=== PATIENT | female | born 1960 | race Caucasian/White ===

== ENCOUNTER 2018-11-29 14:11 | Observation (INO) ==
[2018-11-29] MEDS ORDERED: Naloxone 0.4 MG/ML INJ IVP PRN (18:15)
[2018-11-29] MEDS ORDERED: Nitroglycerin 0.4 MG TAB.SUBL SL PRN (18:20)
--- NOTE | 2018-11-29 18:23 | Internal Med History&Physical ---
Date of Encounter: 11/29/18 Time of Encounter: 18:21 Internal Medicine - H&P: HPI Chief complaint: Chest pain Admitted From: Home Plans for Post Hospital Care: Home History of present illness: Ms. Adamson is a 58 year old female with past medical history significant for chronic lower back pain, distress with significant disease, and depression, presented to the [facility] as a transfer from [facility] due to chest pain. Patient reports her chest pain is going on for past 1 month. Patient reports has just been is getting increasingly worse over past 1 week. Recent chest pain is sharp and tight, 8 out of 10 in severity, and radiates below her bilateral breast. She denied any aggravating and Enterobacter. She denied any difficulty breathing, cough, fever, and chills. Patient denied any nausea, vomiting, abdominal pain, and diabetes. Patient denied any tingling, numbness, weakness, and diaphoresis. Patient had EKG done at outside facility which showed sinus rhythm and ST segment depression which was minimal in lead 3 and aVF. Patient's repeat EKG after that was within normal limit and sinus rhythm. Recent troponin one time was done and was negative. Patient was transferred to [facility] for further workup and cardiology consult. Patient denies any history of hypertension and diabetes. He does admit to smoking. 40 pack smoking history. Past Med Surg Social Fam HX - Past Medical History Medical history: COPD Additional medical history: CHRONIC PAIN Psychiatric history: no psych history - Past Surgical History Surgical History: orthopedic, other, other Additional surgical history: back surgery. rt wrist. d&C. t&a, - Social History Smoking Status: Current every day smoker Packs per day: 1 Smokeless Tobacco Status: No Alcohol use: none Drug use: none - Family History Mother Hx Family Respiratory Disorders: Yes Hx Family Musculoskeletal Disorders: Yes Father Hx Family Respiratory Disorders: Yes (Lung Cancer) Internal Medicine - H&P: Meds No Known Home Drugs 11/29/18 [History] Allergy/AdvReac Type Severity Reaction Status Date / Time No Known Allergies Allergy Verified 11/17/15 10:39 All Systems PM: A 10-system review of systems was performed and is negative for pertinent findings except as documented above in the HPI. - Constitutional Vitals: Temp Pulse Resp BP Pulse Ox 98.2 F 68 18 123/72 97 11/29/18 17:47 11/29/18 17:47 11/29/18 17:47 11/29/18 17:47 11/29/18 17:47 General appearance: Present: cooperative, A&O X 3 Exam: General: A & O 3, In no acute distress HENNT: PERRLA. Head atraumatic and makes supple CVS S1 and S2 regular, no murmur RS: Clear to air entry bilaterally, no wheeze, no crackles Abdomen: Soft and nontender. Bowel sounds normal 4 Extremities: No cyanosis, clubbing, and edema Neurology: Cranial II-XII normal. Motor strength 5/5 bilaterally. Sensation intact - Assessment and Plan (1) Chest pain Current Visit: No Status: Acute Assessment and plan: Patient transferred to [facility] for chest pain. Patient has been reporting just past one month which has worsened over past 1 week. He has a history of gastroesophageal reflux disease. EKG ordered outside facility showed minimal ST depression in the II and III and in aVF. Patient's repeat EKG was within normal limit with sinus rhythm. Troponin 1 was negative. Patient could be having just been due to unstable angina. - Trend troponin - Morphine for pain control as needed. - Supplement O2 to keep O2 saturation above 92% - Lipid panel - EKG in - Echocardiogram ordered - Will consider cardiology consult Qualifiers: Chest pain type: unspecified Qualified Code(s): R07.9 - Chest pain, unspecified (2) GERD (gastroesophageal reflux disease) Current Visit: Yes Status: Chronic Assessment and plan: Continue Protonix. Qualifiers: Esophagitis presence: esophagitis presence not specified Qualified Code(s): K21.9 - Gastro-esophageal reflux disease without esophagitis (3) Depression Current Visit: Yes Status: Acute Assessment and plan: Continue Prozac Qualifiers: Depression Type: unspecified Qualified Code(s): F32.9 - Major depressive disorder, single episode, unspecified (4) Chronic lower back pain Current Visit: Yes Status: Acute Assessment and plan: Continue continue morphine as needed Qualifiers: Back pain laterality: unspecified Sciatica presence: unspecified whether sciatica present Qualified Code(s): M54.5 - Low back pain; G89.29 - Other chronic pain (5) DVT prophylaxis Current Visit: Yes Status: Acute Assessment and plan: Heparin subcutaneous. - Time Spent With Patient Total time spent is greater than 50% in coordination of care (as documented) at patient's floor/unit and/or counseling patient: Greater than 35 minutes
[2018-11-29] MEDS ORDERED: *HR* Heparin 5,000 UNIT/ML VIAL IVP ONE (18:45)
[2018-11-29] MEDS ORDERED: *HR* Heparin 5,000 UNIT/ML VIAL IVP PRN (18:45)
[2018-11-29] MEDS: 0.9 % Sodium Chloride 1,000 ML IVC SCH (18:55)
[2018-11-29] MEDS: Heparin 25,000 UNIT/250 ML D5W 25,000 UNIT/250 ML IV.SOLN IVC SCH (19:45)
[2018-11-29] MEDS: Morphine Sulfate 2 MG/ML SYRINGE IVP PRN (21:01)
[2018-11-29] MEDS: Nicotine 21 MG PATCH.TD24 TD SCH (21:41)
[2018-11-29] MEDS ORDERED: *HR* Heparin 5,000 UNIT/ML VIAL SQ SCH (22:00)
[2018-11-30 02:06] LABS: Basophils # 0.1 K/mcL (0.0-0.2); Basophils % 0.7 %; Eosinophils % 0.3 %; Hematocrit 37.4 % (35.3-44.9); Hemoglobin 12.4 g/dL (11.5-15.4); Immature Granulocytes % 0.1 % (0-4); Lymphocytes # 2.9 K/mcL (0.6-4.6); Lymphocytes % 38.5 %; Mean Corpuscular HGB Conc 33.2 g/dL (31.6-35.5); Mean Corpuscular Hemoglobin 32.3 pg (28.0-33.3); Mean Corpuscular Volume 97.4 fL (83.0-100.0); Mean Platelet Volume 9.1 fL (9.4-12.4); Monocytes # 0.5 K/mcL (0.0-1.3); Monocytes % 6.7 %; Neutrophils # 4.1 K/mcL (1.6-8.9); Platelet Count 309 K/mcL (140-400); Red Blood Count 3.84 M/mcL (3.82-4.97); Red Cell Distribution Width 14.1 % (11.5-14.5); Segmented Neutrophils % 53.7 %; White Blood Count 7.6 K/mcL (4.3-11.1)
[2018-11-30 02:25] LABS: BUN/Creatinine Ratio 23 (6-26); Blood Urea Nitrogen 16 mg/dL (6-20); Calcium 9.4 mg/dL (8.6-10.3); Carbon Dioxide 24 mEq/L (23-29); Chloride 109 mEq/L (98-107); Cholesterol 185 mg/dL (< 200); Glucose 89 mg/dL (70-105); HDL Cholesterol 45 mg/dL (40-59); Osmolality,Calculated 289 (280-300); Sodium 139 mEq/L (136-145); Triglycerides 151 mg/dL (< 150); eGFR For African Americans > 60 (> 60); eGFR For Non-African Americans > 60 (> 60)
[2018-11-30 02:26] LABS: Chol/HDL Ratio 4.1 (0-4.9); LDL Cholesterol,Calculated 110 mg/dL (0-99)
[2018-11-30] MEDS: *HR* Heparin 5,000 UNIT/ML VIAL IVP PRN ×2 (02:31→15:01)
[2018-11-30] MEDS: Nicotine 21 MG PATCH.TD24 TD SCH (09:35)
[2018-11-30] MEDS: FLUoxetine 20 MG CAPSULE PO SCH (09:38)
[2018-11-30] MEDS: Morphine Sulfate 2 MG/ML SYRINGE IVP PRN (09:47)
[2018-11-30] MEDS ORDERED: Acetaminophen 325 MG TABLET PO PRN (10:36)
[2018-11-30] MEDS ORDERED: GI Cocktail 40 ML EACH PO ONE (11:32)
--- NOTE | 2018-11-30 12:19 | Internal Med Progress Note ---
Hospitalist Progress Note - Encounter Date of Encounter: 11/30/18 Time of Encounter: 12:16 - Subjective Interval History: She will seen and examined at bedside today. Patient still complains of on and off chest pain which is substernal and burning. Patient's assessment appears to be atypical. Patient's troponins 3 has been negative. Patient to go for echo today. Cardiology consult. We will consider stress test. - Exam Vitals: Temp Pulse Resp BP Pulse Ox 98.3 F 85 18 121/83 97 11/30/18 11:32 11/30/18 11:32 11/30/18 11:32 11/30/18 11:32 11/30/18 11:32 Exam: General: A & O 3, In no acute distress HENNT: PERRLA. Head atraumatic and makes supple CVS S1 and S2 regular, no murmur RS: Clear to air entry bilaterally, no wheeze, no crackles Abdomen: Soft and nontender. Bowel sounds normal 4 Extremities: No cyanosis, clubbing, and edema Neurology: Cranial II-XII normal. Motor strength 5/5 bilaterally. Sensation intact - Assessment and Plan (1) Chest pain Current Visit: Yes Status: Acute Assessment and Plan: Leslye continues to have atypical chest pain. Troponin 3 has been negative. Plan is to get echo today. Cardiology on consult. We will consider stress test. We will switch pain management to oral pain medication. We will plan on getting stress test tomorrow anticipate discharge tomorrow after stress test. (2) GERD (gastroesophageal reflux disease) Current Visit: Yes Status: Chronic Assessment and Plan: Continue Protonix. GI cocktail 1. Patient reports that she has a history of GERD and she has not been taking her medication fpr 7-8 months due to insurance issue. Recent substernal burning pain could be due to exacerbation of baseline gastroesophageal reflux disease. (3) Depression Current Visit: Yes Status: Acute Assessment and Plan: Continue Prozac (4) Chronic lower back pain Current Visit: Yes Status: Acute Assessment and Plan: Continue continue morphine as needed (5) DVT prophylaxis Current Visit: Yes Status: Acute Assessment and Plan: Heparin gtt - Time Spent with Patient Total time spent is greater than 50% in coordination of care (as documented) at patient's floor/unit and/or counseling patient: 25 - 35 minutes Plan of Care Discussed with: patient Internal Medicine: Result - Labs CBC & Chem 7: 11/30/18 01:47 11/30/18 01:47 Labs: Short CBC 11/30/18 Range/Units 01:47 WBC 7.6 (4.3-11.1) K/mcL Hgb 12.4 (11.5-15.4) g/dL Hct 37.4 (35.3-44.9) % Plt Count 309 (140-400) K/mcL Neutrophils # 4.1 (1.6-8.9) K/mcL BMP 11/30/18 01:47 Sodium 139 Potassium 4.0 Chloride 109 H Carbon Dioxide 24 BUN 16 Creatinine 0.71 Glucose 89 Calcium 9.4 Cardiac Enzymes 11/29/18 11/30/18 11/30/18 Range/Units 18:27 01:47 06:29 Troponin I < 0.03 < 0.03 < 0.03 (< 0.04) ng/mL Consult Discharge Plan - Plan Referrals: Sergio Finn MD [Primary Care Provider] - (1) Chest pain Qualifiers: Chest pain type: unspecified Qualified Code(s): R07.9 - Chest pain, unspecified (2) GERD (gastroesophageal reflux disease) Qualifiers: Esophagitis presence: esophagitis presence not specified Qualified Code(s): K21.9 - Gastro-esophageal reflux disease without esophagitis (3) Depression Qualifiers: Depression Type: unspecified Qualified Code(s): F32.9 - Major depressive disorder, single episode, unspecified (4) Chronic lower back pain Qualifiers: Back pain laterality: unspecified Sciatica presence: unspecified whether sciatica present Qualified Code(s): M54.5 - Low back pain; G89.29 - Other chronic pain
[2018-11-30] MEDS: 0.9 % Sodium Chloride 1,000 ML IVC SCH (17:28)
[2018-11-30] MEDS: *HR* HYDROcodone/Acet 5/325 mg TABLET PO PRN (20:37)
[2018-11-30] MEDS: Heparin 25,000 UNIT/250 ML D5W 25,000 UNIT/250 ML IV.SOLN IVC SCH (22:25)
[2018-12-01] MEDS ORDERED: Regadenoson 0.4 MG/5 ML SYRINGE IVP ONE (06:10)
[2018-12-01] MEDS: FLUoxetine 20 MG CAPSULE PO SCH (08:41)
[2018-12-01] MEDS: *HR* HYDROcodone/Acet 5/325 mg TABLET PO PRN ×2 (08:41→13:29)
[2018-12-01] MEDS: Nicotine 21 MG PATCH.TD24 TD SCH (08:42)
--- NOTE | 2018-12-01 10:31 | Cardiology Consult Note ---
Date of Encounter: 12/01/18 Time of Encounter: 10:30 Assessment and Plan (1) Chest pain Current Visit: Yes Status: Acute Per Cardiology: Troponins negative 3. Currently chest pain-free. Echo with preserved EF. Stress test perfusion imaging negative for ischemia or infarct, however ECG with ischemic changes. I discussed with patient about potential further ischemic evaluation in terms of left heart catheterization, however patient prefers to go home and follow-up in outpatient setting and monitor symptoms. Would discontinue IV heparin drip. We will add baby aspirin. We will discuss review with Dr. Suh. Cardiology signing off, reconsult as needed, follow-up arranged. Qualifiers: Chest pain type: unspecified Qualified Code(s): R07.9 - Chest pain, unspecified (2) Nicotine abuse Current Visit: Yes Status: Chronic Per Cardiology: History smoked one pack per day for 40 years. I did spend 3-5 minutes today providing smoking cessation education and counseling. Patient highly encouraged to quit smoking. Discussion w patient/family: The assessment and plan as outlined above was discussed with the patient and/or family members who expressed understanding and agreement. All questions were answered. Thank you for involving us in the care of your patient. Please call with any questions. History of Present Illness Consult date: 12/01/18 Consult reason: Abnormal ECG on stress Chief complaint: CP History of present illness: Ms. Adamson is a 58 year old female with relevant past medical history of COPD and nicotine abuse. Has smoked one pack per day for 40 years. Cardiology consult for abnormal ECG during stress test. Patient reports exertional bilateral lower rib cage pressure with activities. She indicates overall increased dyspnea on exertion from baseline over the past one month. Does indicate increasing fatigue over the past one month as well. She reports currently attempting to decrease smoking. She reports possible family history mother and father with MIs, however no stenting or bypass surgery. She denies any previous left heart catheterization. Currently chest pain-free. She denies any recent infectious process. Denies any dizziness, syncope, falls, palpitations, any edema or swelling. Denies any active bleeding or blood loss. Past Med Surg Social Fam HX - Past Medical History Attestation: Yes The following information was validated with the patient. Source: patient, old records reviewed Medical history: COPD Additional medical history: CHRONIC PAIN Psychiatric history: no psych history - Past Surgical History Surgical History: orthopedic, other, other Additional surgical history: back surgery. rt wrist. d&C. t&a, - Social History Smoking Status: Current every day smoker Packs per day: 1 Smokeless Tobacco Status: No Alcohol use: none Drug use: none - Family History Mother Hx Family Respiratory Disorders: Yes Hx Family Musculoskeletal Disorders: Yes Father Hx Family Respiratory Disorders: Yes (Lung Cancer) Medications and Allergies Albuterol Sulfate [Ventolin Hfa] 18 gm IH 4-6XD PRN 30 Days #1 hfa.aer.ad 11/30/18 [Rx] Aspirin 81 mg PO DAILY 30 Days #30 tab.chew 11/30/18 [Rx] FLUoxetine HCl [PROzac] 40 mg PO DAILY 30 Days #30 capsule 11/30/18 [Rx] Gabapentin 300 mg PO TID 30 Days #90 tablet 11/30/18 [Rx] Pantoprazole Sodium [Protonix] 40 mg PO DAILY 30 Days #30 tablet.dr 11/30/18 [Rx] Ranitidine Oral Soln [Zantac] 150 mg PO BID 30 Days #60 mls 11/30/18 [Rx] Allergy/AdvReac Type Severity Reaction Status Date / Time No Known Allergies Allergy Verified 11/17/15 10:39 All Systems Review: The remainder of the systems were reviewed and are negative - Constitutional Constitutional: fatigue - Cardiovascular Cardiovascular: as per HPI, chest pain with exertion, dyspnea on exertion Physical Examination Selected Entries 12/01/18 05:29 12/01/18 08:48 Temperature 98.3 F Respiratory Rate 16 Blood Pressure 109/77 O2 Sat by Pulse Oximetry 96 Oxygen Delivery Method Room Air General: Conversant, No Apparent Distress HEENT: Atraumatic, Normocephaly, Mucus Membranes Moist Neck: No JVD, Normal carotid pulses Cardiac: Reg Rate and Rhythm, Normal S1 and S2, No Murmur Lungs: Normal Breath Sounds, No Wheeze, Rales, Rhonchi Neuro: Alert and responsive, No focal deficits noted Abdomen: Soft, Non-Tender Skin: No rashes noted on visualized skin Musculoskeletal: No Chest Wall Tenderness Extremities: No Clubbing, No Cyanosis, No Edema, Normal Pulses Results 11/30/18 01:47 11/30/18 01:47 Laboratory Tests 11/29/18 11/30/18 11/30/18 18:27 01:47 01:47 Hgb 12.4 Hct 37.4 Creatinine Est GFR (Non-Af Amer) Troponin I < 0.03 < 0.03 LDL Cholesterol, Calc 11/30/18 11/30/18 01:47 06:29 Hgb Hct Creatinine 0.71 Est GFR (Non-Af Amer) > 60 Troponin I < 0.03 LDL Cholesterol, Calc 110 H ITS Impressions Echocardiogram 11/30/18 12:30 Impressions: LVEF 55%. Indeterminate diastolic function. Normal right ventricular structure and function. Mild mitral regurgitation. Mild-moderate tricuspid regurgitation. No pulmonary hypertension. Left Ventricular Wall Motion: Rest Echo Findings All wall segments showed normal motion. Findings: Study Quality * Technically adequate exam. ECG Findings * Normal sinus rhythm. Left Ventricle * LVEF 55%. * Indeterminate diastolic function. * LV chamber size and wall thickness measurements are normal. Right Ventricle * Normal right ventricular structure and function. Left Atrium * Normal left atrial size. Right Atrium * Normal right atrial size. Aortic Valve * No aortic regurgitation. * Trileaflet aortic valve. * No aortic stenosis. Mitral Valve * No mitral stenosis. * Mild mitral regurgitation. * Elongated AMVL with mild billowing. Tricuspid Valve * Normal tricuspid valve structure. * Mild-moderate tricuspid regurgitation. * Estimated RA pressure is 3 mmHg. * Estimated RVSP is 26 mmHg. * No pulmonary hypertension. Pulmonic Valve * Pulmonic valve is not well visualized. * No pulmonic stenosis. * No pulmonic regurgitation. Pulmonary Artery * Pulmonary artery not well visualized. Aorta * Normally sized aortic root. Pericardium * There is no pericardial effusion present. Interatrial Septum * No evidence of PFO by color Doppler. IVC * Normal IVC dimensions and inspiratory collapse. Active Medications Acetaminophen (Tylenol) 650 mg PO Q6HR PRN PRN Reason: Mild to Moderate Pain/Fever Stop: 06/01/19 10:37 Hydrocodone Bitart/Acetaminophen (Lingle 5-325 Mg) 1 tab PO Q4HR PRN PRN Reason: Severe Pain Stop: 06/01/19 10:37 Last Admin: 12/01/18 08:41 Dose: 1 tab Documented by: Aspirin (Aspirin Ec) 81 mg PO DAILY [facility] Stop: 06/03/19 09:01 Docusate Sodium (Colace) 100 mg PO BID [facility] Stop: 05/31/19 21:01 Last Admin: 12/01/18 08:41 Dose: 100 mg Documented by: Fluoxetine HCl (Prozac) 20 mg PO DAILY [facility]; Protocol Stop: 06/01/19 09:01 Last Admin: 12/01/18 08:41 Dose: 20 mg Documented by: Sodium Chloride (0.9 % Sodium Chloride) 1,000 mls @ 40 mls/hr IVC .Q24H KARINA Stop: 12/01/18 18:14 Last Admin: 11/30/18 17:28 Dose: 40 mls/hr Documented by: Naloxone HCl (Narcan) 0.4 mg IVP Q2MPRN PRN PRN Reason: SEE COMMENTS Stop: 05/31/19 18:16 Nicotine (Nicoderm) 21 mg TD DAILY [facility]; Protocol Stop: 05/31/19 20:28 Last Admin: 12/01/18 08:42 Dose: 21 mg Documented by: Nitroglycerin (Nitroglycerin) 0.4 mg SL Q5MPRN PRN PRN Reason: Chest Pain Stop: 05/31/19 18:21 Omeprazole (Prilosec) 40 mg PO DAILY@0730 [facility]; Protocol Stop: 06/02/19 07:31 Last Admin: 12/01/18 08:42 Dose: 40 mg Documented by: - Imaging and Cardiology Stress Test: report reviewed Echo: report reviewed - EKG Interpretation EKG results cardiology: personally reviewed, normal ECG, sinus rhythm, no diagnostic ischemia Consult Discharge Plan - Plan Referrals: Sergio Finn MD [Primary Care Provider] - Prescriptions: Aspirin 81 mg PO DAILY 30 Days #30 tab.chew Gabapentin 300 mg PO TID 30 Days #90 tablet Pantoprazole Sodium [Protonix] 40 mg PO DAILY 30 Days #30 tablet. FLUoxetine HCl [PROzac] 40 mg PO DAILY 30 Days #30 capsule Albuterol Sulfate [Ventolin Hfa] 18 gm IH 4-6XD PRN 30 Days #1 hfa.aer.ad PRN Reason: Dyspnea Ranitidine Oral Soln [Zantac] 150 mg PO BID 30 Days #60 mls
[2018-12-01 11:19] VITALS: BP 107/72
--- NOTE | 2018-12-01 11:37 | Discharge Summary ---
- NOTES TO OUTPATIENT PROVIDER Notes to Outpatient Provider: Pt was hospitalized due to chest pain. Troponin 3 was negative. Patient's stress test was abnormal for ischemic changes on the stress EKG, however perfusion imaging was negative. Cardiology was consulted. Cardiology recommended further ischemic workup including left heart catheterization. However patient refused to do left heart catheterization at this point. She would like to follow-up with cardiology outpatient. Patient will be discharged on aspirin 81 mg daily and nitroglycerin as needed. (Nik) within 1 week. Follow-up with cardiology. Estimated PT Needs at Discharge: None Date of Encounter: 12/01/18 Time of Encounter: 11:33 - Discharge Diagnosis (1) Angina of effort Priority: Primary Status: Acute (2) Chest pain Priority: Secondary Status: Acute Qualifiers: Chest pain type: unspecified Qualified Code(s): R07.9 - Chest pain, unspecified (3) GERD (gastroesophageal reflux disease) Priority: Secondary Status: Chronic Qualifiers: Esophagitis presence: esophagitis presence not specified Qualified Code(s): K21.9 - Gastro-esophageal reflux disease without esophagitis (4) Depression Priority: Secondary Status: Acute Qualifiers: Depression Type: unspecified Qualified Code(s): F32.9 - Major depressive disorder, single episode, unspecified (5) Chronic lower back pain Priority: Secondary Status: Acute Qualifiers: Back pain laterality: unspecified Sciatica presence: unspecified whether sciatica present Qualified Code(s): M54.5 - Low back pain; G89.29 - Other chronic pain (6) DVT prophylaxis Priority: Secondary Status: Acute Hospital course: Ms. Adamson is a 58 year old female was hospitalized due to chest pain. Troponin 3 was negative. Patient's stress test was abnormal for ischemic changes on the stress EKG, however perfusion imaging was negative. Cardiology was consulted. Cardiology recommended further ischemic workup including left heart catheterization. However patient refused to do left heart catheterization at this point. She would like to follow-up with cardiology outpatient. Patient will be discharged on aspirin 81 mg daily and nitroglycerin as needed. Follow up with primary care provider within 1 week. Follow-up with cardiology outpatient. Patient was advised to start taking aspirin 81 mg daily. Patient was also prescribed some supplemental insulin 0.4 mg to take as needed for chest pain. Advised to limit 3 tablets per episode of chest pain every 5 minutes. Patient was also advised to go to the nearest emergency room if chest pain does not resolve after sublingual nitroglycerin. Discharge discussed with: patient, family, nurse, social work, case management, email production consultant - Time Spent with Patient Total time spent providing and/or coordinating discharge services: 35 Time spent: Greater than 30 minutes - Discharge Medications Prescriptions: New Aspirin 81 mg PO DAILY 30 Days #30 tab.chew Gabapentin 300 mg PO TID 30 Days #90 tablet Pantoprazole Sodium [Protonix] 40 mg PO DAILY 30 Days #30 tablet. FLUoxetine HCl [PROzac] 40 mg PO DAILY 30 Days #30 capsule Albuterol Sulfate [Ventolin Hfa] 18 gm IH 4-6XD PRN 30 Days #1 hfa.aer.ad PRN Reason: Dyspnea Ranitidine Oral Soln [Zantac] 150 mg PO BID 30 Days #60 mls Nitroglycerin 0.4 mg SL Q5MPRN PRN #10 tab.subl PRN Reason: Chest Pain Home Medications: Albuterol Sulfate [Ventolin Hfa] 18 gm IH 4-6XD PRN 30 Days #1 hfa.aer.ad 11/30/18 [Rx] Aspirin 81 mg PO DAILY 30 Days #30 tab.chew 11/30/18 [Rx] FLUoxetine HCl [PROzac] 40 mg PO DAILY 30 Days #30 capsule 11/30/18 [Rx] Gabapentin 300 mg PO TID 30 Days #90 tablet 11/30/18 [Rx] Pantoprazole Sodium [Protonix] 40 mg PO DAILY 30 Days #30 tablet. 11/30/18 [Rx] Ranitidine Oral Soln [Zantac] 150 mg PO BID 30 Days #60 mls 11/30/18 [Rx] Nitroglycerin 0.4 mg SL Q5MPRN PRN #10 tab.subl 12/01/18 [Rx] Allergies/Adverse Reactions: Allergy/AdvReac Type Severity Reaction Status Date / Time No Known Allergies Allergy Verified 11/17/15 10:39 Date of admission: 11/29/18 17:41 Primary care physician: Sergio Finn MD Consults: Cardiology Discharging clinician: Dontae Whittington - Constitutional Vitals: Temp Pulse Resp BP Pulse Ox 98.4 F 76 18 107/72 97 12/01/18 11:13 12/01/18 11:13 12/01/18 11:13 12/01/18 11:13 12/01/18 11:13 General appearance: Present: cooperative, A&O X 3 Exam: General: A & O 3, In no acute distress HENNT: PERRLA. Head atraumatic and makes supple CVS S1 and S2 regular, no murmur RS: Clear to air entry bilaterally, no wheeze, no crackles Abdomen: Soft and nontender. Bowel sounds normal 4 Extremities: No cyanosis, clubbing, and edema Neurology: Cranial II-XII normal. Motor strength 5/5 bilaterally. Sensation intact - Patient Status Disposition: Home, Self-Care Condition: Good Overall status at discharge: patient is progressing back to baseline - Discharge Instructions Follow Up With: Sergio Finn MD [Primary Care Provider] - - Diet and Activity Activity: increase activity as tolerated Diet: low salt diet
[2018-12-02] MEDS ORDERED: Aspirin Enteric Coated 81 MG Tablet PO SCH (09:00)
== END 2018-12-01 14:16 | disposition home or self-care (01) ==
LOC: 2ANU → SUATTDRO 17:41
PROVIDERS: ADMIT Internal Medicine; ATTEND Family Medicine